=== PATIENT | male | born 1990 | race Two or more races ===

== ENCOUNTER 2017-11-17 20:35 | Emergency (ER) | payer MEDICAID ==
[~2017-11-17] VITALS: Ht 177.8 cm; Wt 81.6 kg
[2017-11-17 20:50] VITALS: BP 122/87
== END 2017-11-17 21:27 | disposition left against medical advice (07) ==
LOC: EDBD 20:35 → ER 20:47 → EDSEX 20:47 → ER 20:50
DX: Z02.89 Encounter for other administrative examinations (principal); Z53.21 Procedure and treatment not carried out due to patient leaving prior to being seen by health care provider